=== PATIENT | male | born 1985 | race Caucasian/White ===

== ENCOUNTER 2017-05-27 10:18 | Day surgery (SDC) | payer BC ==
[~2017-05-27] VITALS: Ht 182.9 cm; Wt 96.6 kg
[2017-05-27 10:57] VITALS: BP 152/85
[2017-05-27] MEDS ORDERED: LACTATED RINGERS 1,000 ML IV SCH (11:06)
[2017-05-27] MEDS ORDERED: LIDOCAINE 1%, 2ML SQ PRN (11:30)
[2017-05-27] MEDS ORDERED: FENTANYL PF 500 MCG/10ML ONE (11:51)
[2017-05-27] MEDS ORDERED: MIDAZOLAM 1 MG/ML, 2ML ONE (11:51)
[2017-05-27] MEDS ORDERED: GLYCOPYRROLATE 0.2MG/1ML ONE (12:06)
[2017-05-27] MEDS ORDERED: NEOSTIGMINE 1 MG/ML, 10ML ONE (12:06)
[2017-05-27] MEDS ORDERED: DEXAMETHASONE 4 MG/ML, 1ML ONE (12:06)
[2017-05-27] MEDS ORDERED: ROCURONIUM 10 MG/ML ONE ×2 (12:06)
[2017-05-27] MEDS ORDERED: CEFAZOLIN 1,000 MG ONE (12:06)
[2017-05-27] MEDS ORDERED: ONDANSETRON 2MG/ML, 2ML ONE (12:06)
[2017-05-27] MEDS ORDERED: PROPOFOL 10 MG/ML, 50ML ONE (12:06)
[2017-05-27] MEDS ORDERED: SUCCINYLCHOLINE 20 MG/ML, 10ML ONE (12:06)
[2017-05-27] MEDS ORDERED: BUPIVACAINE/PF 0.25% ONE (12:20)
[2017-05-27] MEDS ORDERED: MIDAZOLAM 1 MG/ML, 2ML IV PRN (13:00)
[2017-05-27] MEDS ORDERED: HYDROmorphone 1 MG/ML, 1ML IV PRN (13:00)
[2017-05-27] MEDS ORDERED: OXYcodone 5 MG/5 ML ORAL.SOL UDC PO PRN (13:00)
[2017-05-27] MEDS ORDERED: ACETAMINOPHEN 325 MG TABLET PO PRN (13:00)
[2017-05-27] MEDS ORDERED: PROMETHAZINE 25 MG/ML, 1ML IV PRN (13:00)
[2017-05-27] MEDS ORDERED: MEPERIDINE/PF 25MG/0.5ML IVPush PRN (13:00)
[2017-05-27] MEDS ORDERED: ONDANSETRON 2MG/ML, 2ML IVPush PRN (13:00)
[2017-05-27] MEDS ORDERED: ACETAMINOPHEN 650 MG/20.3 ML UDC ONE (14:41)
[2017-05-27] MEDS ORDERED: OXYcodone 5 MG/5 ML ORAL.SOL UDC ONE (14:42)
[2017-05-27] MEDS ORDERED: FENTANYL PF 100 MCG/2ML ONE (14:52)
[2017-05-27] MEDS: FENTANYL PF 100 MCG/2ML IV PRN ×2 (14:55→15:15)
[2017-05-27] MEDS ORDERED: hydrALAzine 20 MG/ML, 1ML ONE ×2 (15:06→16:06)
[2017-05-27] MEDS: hydrALAzine 20 MG/ML, 1ML IV PRN ×2 (15:12→16:10)
== END 2017-05-27 17:20 ==
LOC: OUT 10:18
PROVIDERS: ATTEND Orthopaedic Surgery
DX: S46.211A Strain of muscle, fascia and tendon of other parts of biceps, right arm, initial encounter (principal); X50.0XXA Overexertion from strenuous movement or load, initial encounter; X50.9XXA Other and unspecified overexertion or strenuous movements or postures, initial encounter; Y93.89 Activity, other specified; Y92.89 Other specified places as the place of occurrence of the external cause; Y99.8 Other external cause status
CPT/HCPCS: 24342; 73070; 76000; J0330; J0360; J0690; J1100; J2250; J2405; J2704; J2710; J3010; J3490